=== PATIENT | female | born 1980 | race Hispanic/Latino ===

== ENCOUNTER 2018-03-15 09:20 | Day surgery (SDC) | payer BC ==
[2018-03-10 11:53] VITALS: BMI 23.6
[2018-03-15] MEDS ORDERED: ceFAZolin IV 2 gm in Dextrose 4 GM/100 ML BAG IVPB ONE (09:53)
[2018-03-15] MEDS ORDERED: Bupivacaine HCl 0.5% PF (30 ml) Inj ONE (09:53)
[2018-03-15 10:38] LABS: HEMOGLOBIN 12.7 g/dL (12.0-16.0); MEAN CELL VOLUME 84.1 fl (81.0-99.0); MEAN CORPUSCULAR HEMOGLOBIN 28.5 pg (27.0-31.0); MEAN CORPUSCULAR HGB CONC 33.8 g/dL (33.0-37.0); RBC 4.45 Mil/uL (3.80-5.20); RED CELL DISTRIBUTION WIDTH 13.5 % (11.5-14.5); WHITE BLOOD COUNT 4.8 K/uL (4.8-10.8)
[2018-03-15] MEDS ORDERED: Midazolam 2 MG/2 ML VIAL ONE (12:39)
[2018-03-15] MEDS ORDERED: Propofol 10 mg/ml Inj (20 ML) ONE (12:39)
[2018-03-15] MEDS ORDERED: Rocuronium 10 mg/ml (5 ml) ONE (12:40)
[2018-03-15] MEDS ORDERED: Succinylcholine 200 mg/10 ml Inj IV ONE (12:40)
[2018-03-15] MEDS ORDERED: Lactated Ringer's 1,000 ML IV ONE ×4 (13:24→17:40)
[2018-03-15] MEDS ORDERED: Dexamethasone 4 mg/1 ml ONE ×2 (13:55→15:12)
[2018-03-15] MEDS ORDERED: Bupivacaine 0.5% Inj(30mL) IJ ONE ×2 (13:58)
[2018-03-15] MEDS ORDERED: Desflurane Inhalation Anesthetic Liq (240 ml) ONE (14:43)
[2018-03-15] MEDS ORDERED: Neostigmine 1:1000 (1 mg/ml) Inj ONE (14:45)
[2018-03-15] MEDS ORDERED: Trimethobenzamide 200 mg/2 mL Inj IM PRN (15:56)
[2018-03-15] MEDS ORDERED: Lactated Ringer's 1,000 ML IV SCH (16:00)
[2018-03-15] MEDS: HYDROmorphone 0.5 mg/0.5 ml ISec IVP PRN ×4 (16:12→17:02)
[2018-03-15] MEDS ORDERED: Oxycodone/Acetaminophen 5/325 mg Tab PO PRN (16:36)
[2018-03-15] MEDS ORDERED: HYDROmorphone 0.5 mg/0.5 ml ISec IVP PRN (17:30)
[2018-03-15 21:17] VITALS: O2SAT 95
[2018-03-15 21:18] VITALS: BP 113/75; PULSE 94; RESP 18; TEMP 97.6
--- NOTE | 2018-03-22 08:24 | PCM.OP ---
Operative Report - Operative Report Date of Surgery/Procedure: 03/15/18 Time of Surgery/Procedure: 10:00 Surgeon: Dr. Bernardino Murillo Bedspread Inspector: Dr. Levi Carver Anesthesia/Sedation: general/Dr. Pedro Pre-Operative Diagnosis: abdominal pain and endometriosis Post-Operative Diagnosis: endometriosis with zahra-rectal involvement Indication for Surgery: as above Operative Findings: as above Procedure/Operation Description: 1-Excision perirectal endometriosis (times two) . 2-Colorrhaphy. Brief History: This is a 38 year old woman brought to the operating room by Dr. Carver where it was noted that she had perirectal involvement. Intraoperative consultation was obtained. Description of the Procedure: Dr. Carver had already initiated the robotic procedure (separate dictation Dr. Carver). After taking control of the robotic console the first, most proximal, of the perirectal lesions was incised circufernetially and excixed using blunt and sharp dissection with the aid of electrocautery. The lesion was marked and sent to apthology separately. The second lesion was more distal and obviously deeper. This lesion was excided in a similar manner and snet to pathology separately. The distal rectal defect waas then clsoed with multiple interrupted 3-0 vicryl sutures. Hemostasis was deemed adequate. The operation was then turned over to Dr. Carver (separate dictation Dr. Carver). Estimated Blood Loss: 5 cc Complications: none Specimen: perirectal lesions (times two) Discharge & Condition: stable
--- NOTE | 2018-03-23 00:18 | OP ---
PROCEDURE DATE: 03/15/2018 PREOPERATIVE DIAGNOSES: Dyspareunia, dysmenorrhea, history of endometriosis, rule out recurrent endometriosis. POSTOPERATIVE DIAGNOSIS: Endometriosis stage III involving the ovary, cul-de-sac, pelvic sidewalls and bladder. PROCEDURE PERFORMED: Cystoscopy with bilateral ureteral catheterization and injection of IC-Green dye, diagnostic hysteroscopy, robotic da Giles laparoscopy, left ovarian cystectomy, bilateral ureterolysis, and excision of bladder mass. Dr. Murillo was consulted to excise some rectal lesions, which were sent to Pathology, he will dictate separately. SURGEON: Levi Carver MD RN BARIATRIC: Bernardino Murillo MD from General Surgery. COMPLICATIONS: None. SURGICAL SPECIMENS: Include left ovarian cyst, left periureteral, right uterosacral, left perirectal, posterior cervical perirectal, anterior rectal, right periureteral, left perirectal, center bladder, anterior bladder and round ligament endometriosis. INDICATIONS FOR PROCEDURE: The patient is a 38-year-old female who had surgery six months prior for endometriosis. Only a cystectomy was performed at the time, but evidence of significant residual disease was present. The patient did not resolved any of her symptoms. She was counseled with regards to risk and benefit of a repeat operation with the understanding that it will be more complicated given the prior surgery. She consented to the procedure and was taken to the OR. DESCRIPTION OF PROCEDURE: After adequate anesthesia was obtained, the patient was placed in dorsal lithotomy position with extreme care to pad every area prone to pressure and to make sure that her hips were not hyperextended or hyperflexed. A time-out was taken according to hospital policy, and the patient was prepped and draped, the surgeon gowned and gloved. At this point, a cystoscope was inserted into the bladder revealing a normal appearing bladder. Both ureteral ostia were in a normal anatomical position. The left ureteral ostia was then cannulating utilizing a 5-Tajik open-ended catheter which was advanced all the way to the distal ureter, and 5 mL of IC-Green was then injected. At this point, the same thing was performed on the right ureter where all the way down to the distal ureter IC-Green was injected after cannulating with the stent. At this point, after removing the stents and a cystoscope, a 16-Tajik Vickers was placed in to the bladder and attention was in the vaginal area where a speculum was placed in the vagina. The anterior lip of the cervix was grasped. The cervix was gently dilated and a hysteroscope was placed into the uterus revealing a normal appearing cavity. At this point, attention was on the abdomen where an open laparoscopy performed according to standard procedure. The abdomen cavity was entered and cannula was placed. Under direct visualization, three additional ports were placed, left upper quadrant, left mid quadrant, and right upper quadrant. The [employer] Xi robot was then docked and brought into the field and the upper abdomen was examined appeared to be normal and the procedure was started. There were findings of extensive endometriosis implant both on the bladder, pelvic sidewall on the left, the left ovary was firmly attached to the left pelvic sidewall with what appeared to be a small endometrioma, the cul-de-sac appeared to have endometriosis on it including perirectal areas as well as the right pelvic sidewall. The procedure started on the left hand side after identifying the ureter and the pelvic brim, the retroperitoneal space was entered and a full dissection proceeded from the pelvic brim all the way pointing towards the left ovarian fossa, a full excision was performed elevating the ovary and dissecting the ureter. At this point after elevating the ovary, the ovary appeared to be distorted and area of endometriosis was identified and it was excised and sent to Pathology, this was a small endometrioma. At this point, attention was on the pelvic sidewall where a full dissection was performed with multiple very large lesions which were affecting peritoneum on the left-hand side. As the dissection continued, it continue all the way to the ovarian fossa dissecting of a significant amount of endometriosis,and the right inflammatory lesion. At this point, the excision continuing the posterior aspect of the cervix where again a dissection was performed, opening the rectovaginal space and dissecting off the posterior cervical area. Attention then was on the right-hand side where again the ovary was elevated and the retroperitoneum was entered in a sharp fashion and a progressive dissection was performed identifying the ureter, utilizing fluorescent technology and then progressively dissecting off peritoneum containing large amount of endometriosis, which was also dissected off. The right ovarian fossa also was quite effective with extensive implants, which were also dissected off. At this point, it was checked for hemostasis and was appeared to be excellent, and attention was then on the anterior aspect of the uterus where 3 large implants masses were on the bladder were dissected off with great care not to enter the bladder and not affecting the muscularis of the bladder and these 3 masses were dissected and sent to Pathology. The integrity of the bladder was checked by filling the bladder. An area on the round ligament containing endometriosis was also dissected. At this point, the consult was handed over to Dr. Murillo from General Surgery, who excised a perirectal mass of endometriosis which was also sent off to Pathology. Once this was done, he will dictate it separately. Once this was done, it was checked for hemostasis and appeared to be excellent. The pelvis was irrigated. The da Giles Xi robot was then docked. The instruments were removed. The abdomen desufflated. The incisions were closed with 0 PDS for the fascia and 4-0 Monocryl for the skin. At the end of the procedure, all tapes and instruments counts were correct. The patient tolerated the procedure well and was taken to the recovery room in excellent condition. Levi Carver MD JAN
== END 2018-03-15 23:00 | disposition home or self-care (01) ==
LOC: H.OPSURG 09:20 → H.MEDSURG1 20:34 → H.OPSURG 23:00
PROVIDERS: ATTEND Obstetrics & Gynecology Reproductive Endocrinology
DX: N94.10 Unspecified dyspareunia (principal); N94.6 Dysmenorrhea, unspecified; N80.1 Endometriosis of ovary; N80.3 Endometriosis of pelvic peritoneum; N80.5 Endometriosis of intestine
CPT/HCPCS: 36415; 45171; 58558; 58662; 85027; 86850; 86900; 88305; C1729; J0131; J0330; J0690; J1100; J1170; J1885; J2001; J2250; J2704; J2710; J2765; J3010; J7030; J7120